=== PATIENT | male | born 1970 | race Caucasian/White ===

== ENCOUNTER 2018-06-12 10:19 | Emergency (ER) | payer SELFPAY ==
[2018-06-12 10:39] VITALS: BP 123/82
--- NOTE | 2018-06-12 11:42 | ER Document Report ---
ED General - General Chief Complaint: Abscess Stated Complaint: POSSIBLE ABSCESS Time Seen by Provider: 06/12/18 11:04 TRAVEL OUTSIDE OF THE [place] IN LAST 30 DAYS: No - HPI Patient complains to provider of: Swelling and axilla Onset: Other - 40-year-old male without any health problems known who presents for evaluation of 4 days of swelling and pain in the right axilla which initially started as a single red bump and progressed into several red bumps. He notes that he has had MRSA infection in the past as a result of an abscess on his left lower extremity which got worse. He denies any fevers or chills has been using a warm compress to try and help with it over the last 3 days and says it has not done anything. Has taken Tylenol couple of times. He has not had any abscesses requiring drainage in the past. He has not had any infections in the past that he knows of, he does not have any history of cancer. He is an every day smoker denies any other drug use specifically intravenous drug use, does not drink alcohol. 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 - Related Data Allergies/Adverse Reactions: No Known Allergies Allergy (Verified 06/29/14 01:26) Past Medical History - General Information source: Patient - Social History Smoking Status: Current Every Day Smoker Chew tobacco use (# tins/day): No Frequency of alcohol use: Occasional Drug Abuse: None Family History: Reviewed & Not Pertinent Patient has suicidal ideation: No Patient has homicidal ideation: No - Past Medical History Cardiac Medical History: Reports: Hx Hypertension Renal/ Medical History: Reports: Hx Kidney Stones. Denies: Hx Peritoneal Dialysis Past Surgical History: Reports: Hx Orthopedic Surgery - BILATERAL WRISTS AND L ANKLE - Immunizations Hx Diphtheria, Pertussis, Tetanus Vaccination: Yes Review of Systems - Review of Systems -: Yes All other systems reviewed and negative Physical Exam - Vital signs Vitals: Temp Pulse Resp BP Pulse Ox 97.9 F 66 16 123/82 99 06/12/18 10:34 06/12/18 10:34 06/12/18 10:34 06/12/18 10:34 06/12/18 10:34 - General General appearance: Appears well In distress: None - HEENT Head: Normocephalic Eyes: Normal Conjunctiva: Normal Cornea: Normal Extraocular movements intact: Yes - Respiratory Respiratory status: No respiratory distress Chest status: Nontender Breath sounds: Normal - Cardiovascular Rhythm: Regular Heart sounds: Normal auscultation Murmur: No - Abdominal Inspection: Normal Distension: No distension Bowel sounds: Normal - Back Back: Normal - Extremities Notes: The right axilla demonstrates 4 discrete erythematous raised areas with single comedone centrally no appreciable fluctuance inferiorly, no expressible drainage - Neurological Neuro grossly intact: Yes Cognition: Normal Orientation: AAOx4 - Psychological Associated symptoms: Normal affect Course - Re-evaluation Re-evalutation: 06/12/18 11:42 40-year-old male presents for evaluation of 4 days of painful swelling in the right axilla. He has had MRSA in the past. Given that this patient has had episodes of cellulitis and MRSA in the past will plan for presumptive coverage utilizing Bactrim. Because of the concern of an abscess performed ultrasound at the bedside which did not demonstrate any discrete areas amenable to drainage, there was cobblestoning in the soft tissue suggestive of a soft tissue infection. Spoke with the patient about the importance of follow-up and return for any worsening. He is agreeable at this time do not believe this represents more serious underlying condition such as neoplasm developing sepsis or abscess though all are not been excluded. 06/12/18 12:48 - Vital Signs Vital signs: Temp Pulse Resp BP Pulse Ox 97.9 F 66 16 123/82 99 06/12/18 10:34 06/12/18 10:34 06/12/18 10:34 06/12/18 10:34 06/12/18 10:34 Discharge - Discharge Clinical Impression: Cellulitis Qualifiers: Site of cellulitis: trunk Site of cellulitis of trunk: unspecified site Qualified Code(s): L03.319 - Cellulitis of trunk, unspecified Condition: Good Instructions: MRSA Cellulitis ([facility]), Oral Narcotic Medication ([facility]), Trimethoprim-Sulfa ([facility]) Prescriptions: Hydrocodone/Acetaminophen [[place] 5-325 mg Tablet] 1 tab PO Q8H PRN 3 Days #8 tablet PRN Reason: For Pain Scale 4-5 Sulfamethoxazole/Trimethoprim [Bactrim Ds Tablet] 2 each PO BID #40 tablet Forms: Smoking Cessation Education
== END 2018-06-12 11:58 | disposition home or self-care (01) ==
LOC: ER 10:19
DX: L03.319 Cellulitis of trunk, unspecified (principal); L70.0 Acne vulgaris; F17.200 Nicotine dependence, unspecified, uncomplicated; I10 Essential (primary) hypertension; Z86.14 Personal history of Methicillin resistant Staphylococcus aureus infection
CPT/HCPCS: 99283

== ENCOUNTER 2019-06-02 11:08 | Emergency (ER) | payer SELFPAY ==
[2019-06-02 11:24] VITALS: BP 145/84
[2019-06-02] MEDS ORDERED: ASPIRIN 81 MG TABLET, CHEWABLE PO ONE (11:36)
--- NOTE | 2019-06-02 11:39 | ER Document Report ---
Addendum entered and electronically signed by ALEX DOE NP 06/02/19 13:08: Course - Re-evaluation Re-evalutation: 06/02/19 13:07 I was called to the room by nurse Yaz HDZ because patient wants to leave AMA. I instructed patient the risk of leaving AMA including stroke PA. Patient was encouraged to stop utilizing meth quit smoking get a full physical and take care of himself. He verbalized understanding to all instructions. The patient has decided not to proceed with further recommended testing or treatment to determine the cause of their symptoms. The risks and alternatives to the recommendations were discussed and the patient was understanding. The patient appears clinically to have the capacity to make this decision. Patient was instructed that he/she could return to the emergency department at any time to complete the testing treatment. 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 - Vital Signs Vital signs: Temp Pulse Resp BP Pulse Ox 98.3 F 81 30 H 145/84 H 97 06/02/19 11:22 06/02/19 11:22 06/02/19 11:22 06/02/19 11:22 06/02/19 11:22 Original Note: ED Medical Screen (RME) - General Chief Complaint: Chest Pain Stated Complaint: CHEST PAINS Time Seen by Provider: 06/02/19 11:29 Mode of Arrival: Ambulatory Information source: Patient, Friend Notes: This 49-year-old male presents the emergency department with complaints of acute right sided chest pain right shoulder pain. 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 Patient is right-handed. Also complains of left hand numbness. Patient also reports chest pain for the past 2 months. Girlfriend at his side reports patient's had chest pain for the past couple months. Smokes 2 packs a day. Reports patient is usually very active and now he just seems very fatigued. Complaints of fever vomiting nausea diarr hea. No complaints of shortness of breath. Right-sided chest tender to palpate. Reports some pain to his right upper back I have greeted and performed a rapid initial assessment of this patient. A comprehensive ED assessment and evaluation of the patient, analysis of test results and completion of the medical decision making process will be conducted by additional ED providers. Dictation of this chart was performed using voice recognition software; therefore, there may be some unintended grammatical errors. TRAVEL OUTSIDE OF THE [place] IN LAST 30 DAYS: No - Related Data Allergies/Adverse Reactions: No Known Allergies Allergy (Verified 06/02/19 11:09) Past Medical History - Past Medical History Cardiac Medical History: Reports: Hx Hypertension Renal/ Medical History: Reports: Hx Kidney Stones. Denies: Hx Peritoneal Dial ysis Past Surgical History: Reports: Hx Orthopedic Surgery - BILATERAL WRISTS AND L ANKLE - Immunizations Hx Diphtheria, Pertussis, Tetanus Vaccination: Yes Physical Exam - Vital signs Vitals: Temp Pulse Resp BP Pulse Ox 98.3 F 81 30 H 145/84 H 97 06/02/19 11:22 06/02/19 11:06/02/19 11:06/02/19 11:22 06/02/19 11:22 Course - Vital Signs Vital signs: Temp Pulse Resp BP Pulse Ox 98.3 F 81 30 H 145/84 H 97 06/02/19 11:22 06/02/19 11:22 06/02/19 11:22 06/02/19 11:22 06/02/19 11:22
--- NOTE | 2019-06-02 11:59 | RADIOLOGY REPORT (SQ) ---
EXAM DESCRIPTION: SHOULDER RIGHT 2 OR MORE VIEWS COMPLETED DATE/TIME: 06/02/2019 11:50 am REASON FOR STUDY: chest and shoulder pain COMPARISON: None. NUMBER OF VIEWS: Three views. TECHNIQUE: Internal rotation, external rotation, and Y view images acquired of the right shoulder. LIMITATIONS: None. FINDINGS: MINERALIZATION: Normal. BONES: No acute fracture. No worrisome bone lesions. JOINTS: No dislocation. VISUALIZED LUNGS AND RIBS: No pneumothorax. No rib fracture. SOFT TISSUES: No radiopaque foreign body. OTHER: No other significant finding. IMPRESSION: NEGATIVE STUDY OF THE RIGHT SHOULDER. NO RADIOGRAPHIC EVIDENCE OF ACUTE INJURY. TECHNICAL DOCUMENTATION: JOB ID: [id number] [employer]- All Rights Reserved Reading location - IP/workstation name: [email or web address]
--- NOTE | 2019-06-02 12:00 | RADIOLOGY REPORT (SQ) ---
EXAM DESCRIPTION: CHEST 2 VIEWS COMPLETED DATE/TIME: 06/02/2019 11:50 am REASON FOR STUDY: chest and shoulder pain COMPARISON: None. EXAM PARAMETERS: NUMBER OF VIEWS: two views TECHNIQUE: Digital Frontal and Lateral radiographic views of the chest acquired. RADIATION DOSE: NA LIMITATIONS: none FINDINGS: LUNGS AND PLEURA: No opacities, masses or pneumothorax. No pleural effusion. MEDIASTINUM AND HILAR STRUCTURES: No masses or contour abnormalities. HEART AND VASCULAR STRUCTURES: Heart normal size. No evidence for failure. BONES: No acute findings. HARDWARE: None in the chest. OTHER: No other significant finding. IMPRESSION: NO ACUTE RADIOGRAPHIC FINDING IN THE CHEST. TECHNICAL DOCUMENTATION: JOB ID: [id number] [employer]- All Rights Reserved Reading location - IP/workstation name: [email or web address]
[2019-06-02 12:17] LABS: ABSOLUTE EOSINOPHILS # (AUTO) 0.2 10^3/uL (0.0-0.6); ABSOLUTE MONOCYTES (AUTO) 1.1 10^3/uL (0.1-1.4); ABSOLUTE NEUT (AUTO) 6.9 10^3/uL (1.7-8.2); BASOPHILS % (AUTO) 0.3 % (0-2); EOSINOPHILS % (AUTO) 1.5 % (0-6); HEMATOCRIT 41.3 % (37.9-51.0); HEMOGLOBIN 14.2 g/dL (13.5-17.0); LYMPHOCYTES % (AUTO) 19.8 % (13-45); MEAN CORPUSCULAR HEMOGLOBIN 31.2 pg (27.0-33.4); MEAN CORPUSCULAR HGB CONC 34.3 g/dL (32.0-36.0); MEAN CORPUSCULAR VOLUME 91 fl (80-97); MONOCYTES % (AUTO) 10.5 % (3-13); PLATELET COUNT 245 10^3/uL (150-450); RED BLOOD COUNT 4.55 10^6/uL (4.35-5.55); SEGMENTED NEUTROPHILS % (AUTO) 67.9 % (42-78); TOTAL CELLS COUNTED % (AUTO) 100 %; WHITE BLOOD COUNT 10.1 10^3/uL (4.0-10.5)
--- NOTE | 2019-06-02 12:20 | EKG REPORT ---
SEVERITY:- NORMAL ECG - SINUS RHYTHM : Confirmed by: Johann Tapia MD 02-Jun-2019 12:19:11
[2019-06-02 12:41] LABS: ALKALINE PHOSPHATASE 123 U/L (38-126); ANION GAP 6 (5-19); ASPARTATE AMINO TRANSFERASE 32 U/L (17-59); BILIRUBIN,DIRECT 0.1 mg/dL (0.0-0.4); BILIRUBIN,TOTAL 1.5 mg/dL (0.2-1.3); BLOOD UREA NITROGEN 12 mg/dL (7-20); CALCIUM 9.2 mg/dL (8.4-10.2); CARBON DIOXIDE 31 mmol/L (22-30); CHLORIDE 100 mmol/L (98-107); CREATINE KINASE 261 U/L (55-170); GLUCOSE 83 mg/dL (75-110); POTASSIUM 5.1 mmol/L (3.6-5.0); TOTAL PROTEIN 6.8 g/dL (6.3-8.2)
[2019-06-02 13:00] LABS: APPEARANCE,URINE CLEAR; BILIRUBIN,URINE NEGATIVE (NEGATIVE); COLOR,URINE YELLOW; GLUCOSE, URINE 50 mg/dL (NEGATIVE); KETONES,URINE NEGATIVE (NEGATIVE); LEUKOCYTE ESTERASE,URINE NEGATIVE (NEGATIVE); NITRITE,URINE NEGATIVE (NEGATIVE); PROTEIN,URINE NEGATIVE (NEGATIVE); URINE SPECIFIC GRAVITY 1.026
== END 2019-06-02 13:03 | disposition left against medical advice (07) ==
LOC: ER 11:08
DX: R07.9 Chest pain, unspecified (principal); M25.511 Pain in right shoulder; R20.0 Anesthesia of skin; I10 Essential (primary) hypertension; Z87.442 Personal history of urinary calculi
CPT/HCPCS: 36415; 71046; 80053; 81001; 82550; 84484; 85025; 93005; 93010; 99281